=== PATIENT | female | born 1975 | race Caucasian/White ===

== ENCOUNTER 2022-07-23 17:00 | Outpatient (CLI) | payer OTHER, SELFPAY ==
--- OUTSIDE RECORDS SUMMARY | 2022-07-23 17:02 | XMS_ITS | Clinical Summary ---
:1975 Author Organization [facility] [facility] [place] [address] Care Team Providers Name Role Phone Magdalena Jamison MD Primary Care Provider Allergies No known active allergies Medications Medication Sig Dispensed Refills Start Date End Date Status miscellaneous medical As directed. 1 Each 0 08/02/2021 Active supply (Blood Pressure Blood pressure Cuff) miscIndications: HTN cuff (hypertension) hydroCHLOROthiazide 12.5 Take 1 Tablet 30 Tablet 1 06/19/2022 Active mg tabletIndications: HTN (12.5 mg) by (hypertension) mouth once daily. amLODIPine (NORVASC) 5 mg Take 1 Tablet 90 Tablet 3 06/19/2022 Active tabletIndications: HTN (5 mg) by (hypertension) mouth once daily. Active Problems Problem Noted Date Prediabetes 08/02/2021 HTN (hypertension) 08/02/2021 Obesity, Class II, BMI 35-39.9 07/16/2018 Encounters Date Type Specialty Care Team Description 07/22/2022 Orders Only Lab, [facility] 07/22/2022 Travel 07/13/2022 Refill Magdalena Jamison MD Refill Request (Amlodipine) 06/19/2022 Office Visit Magdalena Jamison MD Medicat ion Management (Amlodipine - h ome readings 130-140/70-80's ) 06/19/2022 Travel 06/09/2022 Refill Magdalena Jamison MD Refill Request (Amlodipine) 05/08/2022 Refill Magdalena Jamison MD Refill Request (Amlodipine) from Last 3 Months Immunizations Name Administration Dates Next Due AMB Influenza, IIV4 PF (=>6 mos Flulaval,Fluzone 11/21/2014 Fluarix)(Flu Clinic Only) Influenza, IIV3 (Age >=3 years) 08/12/2009, 09/11/2007 Influenza, IIV4 08/02/2021 Influenza, IIV4 (=>6mos) MDV 08/16/2020, 08/31/2019 Td (Age >=7 Years) 06/26/2021 Tdap 06/26/2007 Tuberculin (PPD) 08/05/2008 Family History Medical History Relation Name Comments Diabetes type II Father Good Health Father Hypertension Father Diabetes type II Maternal Grandfather Stroke Maternal Grandmother Good Health Mother Relation Name Status Comments Father Maternal Grandfather Maternal Grandmother Mother Social History Tobacco Use Types Packs/Day Years Used Date Never Smoker Smokeless Tobacco: Never Used Tobacco Cessation: Counseling Given: Yes Alcohol Use Standard Drinks/Week Comments No 0 (1 standard drink = 0.6 oz pure alcoho l) Sex Assigned at Date Recorded Not on file COVID-19 Exposure Response Date Recorded In the last 10 days, have you been in contact with No / Unsu re 07/22/2022 4:10 PM CDT someone who was confirmed or suspected to have Coronavirus/COVID-19? Obstetrics History Para Term AB IAB SAB Ectopic Multiple Living Live Births 2 2 Date Outcome GA Total Labor/2nd/3rd Weight Sex Delivery Anes PTL Robina A 1 A5 Name Clin Labor Last Filed Vital Signs Vital Sign Reading Time Taken Comments Blood Pressure 131/83 06/19/2022 10:43 AM CDT Pulse 69 06/19/2022 10:43 AM CDT Temperature 36.7 ??C (98.1 ??F) 03/01/2022 4:03 PM CDT Respiratory Rate - - Oxygen Saturation 99% 06/19/2022 10:43 AM CDT Inhaled Oxygen Concentration - - Weight 96.2 kg (212 lb) 06/19/2022 10:43 AM CDT Height 163.9 cm (5' 4.53) 08/02/2021 4:35 PM CDT Body Mass Index 35.8 08/02/2021 4:35 PM CDT Plan of Treatment Upcoming Encounters Date Type Specialty Care Team Description 07/25/2022 Office Visit Magdalena Jamison MD [address] [facility] [place] [phone] (Wo rk) 11/14/2022 Procedure Only Te Torres MD [address] [facility] [place] [address] (Wo rk) Health Maintenance Due Date Last Done Comments Colonoscopy through age 75 2020 Mammogram for age 45-75 07/12/2022 07/12/2021, 07/11/2020, 07/06/2019, Additional history exists Influenza for age 9-49 07/25/2022 08/02/2021, 08/16/2020, 08/31/2019, Additional history exists BMI (ht and wt on same day) for 08/02/2022 08/02/2021, 06/25 age 18+ Depression screening for age 12+ 08/02/2022 08/02/2021 Pap test for age 21-65 06/26/2024 06/26/2021, 06/26/2021, 06/05/2018, Additional history exists Lipids for age 45-75 08/02/2026 08/02/2021 (Completed juani Francisco) Tetanus booster 06/26/2031 06/26/2021, 06/26/2007 Tdap Completed 06/26/2007 COVID-19 vaccine series Completed 09/27/2021, 01/31/2021, 01/03/2021 Hepatitis C screening for age Completed 06/19/2022 18-79 Procedures Procedure Name Priority Date/Time Associated Diagnosis Comme nts ANTI HCV Routine 06/19/2022 11:22 AM Need for hepatitis C Results for this CDT screening test procedure are in the results section. BASIC METABOLIC Routine 06/19/2022 11:22 AM HTN (hypertension) Results for this PANEL CDT procedure are i n the results section. from Last 3 Months Results ANTI HCV (06/19/2022 11:22 AM CDT) [facility] Method Time Signature HEPATITIS C Non-Reacti Non-Reacti 06/19/2022 [facility] ANTIBODY ve ve 7:35 PM CDT [facility] Comment: Antibodies to HCV not detected; does not exclude the possibility of exposure to HCV. Specimen Anatomical Collection Method / Collection Time Recei sunita Time (Source) Location / Volume Laterality Blood BLOOD SPECIMEN / Venipuncture / 06/19/2022 11:22 06/19 Unknown Unknown AM CDT 11:23 AM CDT Magdalena Jamison MD SEND OUTS Performing Organization Address City/State/ZIP Code Phon e Number [facility] [address] [place] [address] [facility] LAB[facility]ATORY BASIC METABOLIC PANEL (06/19/2022 11:22 AM CDT) P athologist Signature SODIUM 139 135 - 145 06/19/2022 [facility] mmol/L 7:27 PM CDT [facility] POTASSIUM 4.7 3.5 - 5.0 06/19/2022 [facility] mmol/L 7:27 PM CDT [facility] CHLORIDE 104 98 - 110 06/19/2022 [facility] mmol/L 7:27 PM CDT [facility] CO2,TOTAL 24 21 - 31 06/19/2022 [facility] mmol/L 7:27 PM CDT [facility] ANION GAP 11 5 - 18 06/19/2022 [facility] 7:27 PM CDT [facility] GLUCOSE 98 65 - 100 06/19/2022 [facility] mg/dL 7:27 PM CDT [facility] CALCIUM 9.5 8.5 - 10.5 06/19/2022 [facility] mg/dL 7:27 PM CDT [facility] BUN 10 8 - 25 06/19/2022 [facility] mg/dL 7:27 PM CDT [facility] CREATININE 0.74 0.57 - 06/19/2022 [facility] 1.11 mg/dL 7:27 PM CDT [facility] BUN/CREAT RATIO 14 10 - 20 06/19/2022 [facility] 7:27 PM CDT [facility] eGFR >90 >90 06/19/2022 [facility] mL/min/1.7 7:27 PM CDT [facility] Comment: As of 2022, eGFR is calcu lated by the CKD-EPI creatinine equation without race adjustment. eGFR can be inf luenced by muscle mass, exercise, and diet. The reported eGFR is an estimation only and is only applicable if the renal function is stable. Specimen Anatomical Collection Method / Collection Time Recei sunita Time (Source) Location / Volume Laterality Blood BLOOD SPECIMEN / Venipuncture / 06/19/2022 11:22 06/19 Unknown Unknown AM CDT 11:23 AM CDT Magdalena Jamison MD CHEMISTRY Performing Organization Address City/State/ZIP Code Phon e Number [facility] [address] [place] [address] [facility] LABORATORY from Last 3 Months Insurance Payer Benefit Plan / Subscriber ID Effective Dates Phone Addre ss Type Group PREFERRED ONE PREFERRED ONE [id number] 2021-Present [address] [place] [address] [employer] Employer 07/13/1987 [id number] (Home) [place] [address] Care Teams [employer] Power Plant [employer] Relationship Specialty Start Date End Date Magdalena Jamison MD PCP - General 06/25/[address] [place] [address]
--- NOTE | 2022-07-23 17:15 | CRLHL7_ITS ---
For Patients: As a result of the Cures Act, medical imaging exams and procedure reports are released immediately into your electronic medical record. You may view this report before your referring provider. If you have questions, please contact your health care provider. BILATERAL SCREENING MAMMOGRAM WITH COMPUTER-AIDED DETECTION AND TOMOSYNTHESIS TECHNIQUE: CC and MLO views were obtained. These mammographic images have been obtained using full-field digital technique. These mammographic images were interpreted with the benefit of computer-aided detection. Breast Tomosynthesis was used in this interpretation. COMPARISON FILM: 07/12/21, 07/11/20, 07/06/19 FINDINGS: The breasts are heterogeneously dense, which may obscure small masses IMPRESSION: There is no radiographic evidence for malignancy. ASSESSMENT: BI-RADS Category 1: Negative RECOMMENDATION: Routine screening mammogram in 1 year. A lay language report of this examination will be provided to the patient. Sam Gilmore M.D. Diagnostic/Musculoskeletal Radiologist [email or web address] TEE/avery Transcribed: 2:13 p.m. PT/Dictated by: Sam Gilmore MD @ 07/24/2022 7:46:00 AM (Electronically Signed)
== END 2022-07-23 17:01 | disposition home or self-care (01) ==
LOC: MAMMO 17:01
PROVIDERS: PCP Family Medicine; Visit Provider Family Medicine
DX: Z12.31 Encounter for screening mammogram for malignant neoplasm of breast (principal); R92.2 Inconclusive mammogram
CPT/HCPCS: 77063; 77067